=== PATIENT | male | born 1960 | race Caucasian/White ===

== ENCOUNTER → 2018-01-30 07:43 | Outpatient (CLI) | payer BC, SELFPAY ==
--- NOTE | 2018-01-30 07:50 | US_ITS ---
US Arterial Ankle Brachial Ind History: Decreased pulses, hypertension ORDERING PHYSICIAN: Jessica Hines PATIENT AGE: 57 years TECHNIQUE: Segmental pressures obtained of both right and left leg. These are compared to brachial blood pressure to yield index at each level sampled including summary TAYLOR. The data sheets from the procedure are available in PACS FINDINGS Rest study only performed today No prior studies available for comparison. Blood pressures reported are in millimeters mercury. RIGHT LEG TAYLOR = 1.3. RIGHT LEG TBI=.9 Brachial BP: 157 Thigh BP: 180 Calf BP: 192 Ankle PT: 199 Ankle DP : 193 Digit =134 LEFT LEG TAYLOR = 1.2 LEFT LEG TBI= .7 Brachial BPD: 153 Thigh BP: 174 Calf BP: 173 Ankle PT:182 Ankle DP: 178 Digit = 115 Pulses and waveforms: Normal IMPRESSION: The ABIs as reported above are within normal limits. Waveforms and pulses are also unremarkable.
== END ==
PROVIDERS: PCP Nurse Practitioner Family; Visit Provider Nurse Practitioner Family
DX: M31.4 Aortic arch syndrome [Takayasu] (principal)
CPT/HCPCS: 93922

== ENCOUNTER 2024-12-19 06:48 | Outpatient (CLI) | payer BC, SELFPAY ==
--- NOTE | 2024-12-19 07:00 | CT_ITS ---
FINAL REPORT TECHNIQUE: Thin section axial CT images of the temporal bones were obtained. Coronal and sagittal reformatted images were also obtained. This study was performed with techniques to keep radiation doses as low as reasonably achievable (ALARA). Individualized dose reduction techniques using automated exposure control or adjustment of mA and/or kV according to the patient's size were employed. CLINICAL HISTORY: eval for mastoidites or cholestetoma COMPARISON: None FINDINGS: Right temporal bone: The internal auditory canal has an unremarkable appearance. The inner ear structures are unremarkable. The external auditory canal has an unremarkable appearance. No abnormality is identified of the middle ear cavity. The ossicles are intact. The mastoid air cells and mastoid antrum have an unremarkable appearance. No bony mass is identified. Left temporal bone:The internal auditory canal has an unremarkable appearance. The inner ear structures are unremarkable. The external auditory canal has an unremarkable appearance. There is soft tissue density in the lateral aspect of the middle ear cavity without evidence of erosion. This could represent a small acquired cholesteatoma or otitis media. The ossicles are intact. There is fluid present in the left mastoid air cells. No bony mass is identified. IMPRESSION: Unremarkable right temporal bone. Fluid is present in the mastoid air cells consistent with mastoiditis. There is soft tissue density in the lateral aspect of the middle ear cavity, favor otitis media over cholesteatoma. Reviewed, Interpreted and Dictated by Amanda Waller MD Transcribed by Hawa Torres Authenticated and [facility]
== END 2024-12-19 23:59 | disposition home or self-care (01) ==
LOC: RAD 06:54
PROVIDERS: PCP Nurse Practitioner Family; Visit Provider Otolaryngology
DX: H73.892 Other specified disorders of tympanic membrane, left ear (principal); H91.90 Unspecified hearing loss, unspecified ear; H93.13 Tinnitus, bilateral; R93.0 Abnormal findings on diagnostic imaging of skull and head, not elsewhere classified
CPT/HCPCS: 70480